=== PATIENT | male | born 1940 | race Caucasian/White ===

== ENCOUNTER 2017-03-05 15:30 | Inpatient (IN) | payer OTHER ==
[~2017-03-05] VITALS: Ht 180.3 cm; Wt 87.9 kg
[2017-03-05 16:39] VITALS: BP 138/60
[2017-03-05 16:39] LABS: BASOPHILS % (AUTO) 0.9 % (0.0-5.0); EOSINOPHILS % (AUTO) 0.6 % (0.0-8.0); HEMATOCRIT 30.2 % (42-54); LYMPHOCYTES % (AUTO) 46.7 % (21.0-51.0); MEAN CORPUSCULAR HGB CONC 35.2 g/dL (32.0-36.0); MEAN CORPUSCULAR VOLUME 90.9 fL (79-99); MONOCYTES % (AUTO) 13.2 % (3.0-13.0); NEUTROPHILS % (AUTO) 38.6 % (40.0-77.0); NUCLEATED RED BLOOD CELLS 0.1 % (0.0-0.19); PLATELET COUNT (AUTO) 143 K/uL (130-400); RED BLOOD CELL COUNT(AUTO) 3.32 MIL/uL (4.50-6.20); WHITE BLOOD COUNT (AUTO) 4.8 K/uL (4.8-10.8)
[2017-03-05 16:44] LABS: CREATININE 0.8 mg/dL (0.5-1.5); POTASSIUM 4.8 mmol/L (3.5-5.1)
[2017-03-05] MEDS ORDERED: VALS160T28 PO (17:15)
[2017-03-05] MEDS ORDERED: MORP30TA71 PO (17:15)
[2017-03-05] MEDS ORDERED: AMLO10TA2 PO (17:15)
[2017-03-06] VITALS (20 sets, daily range): BP systolic 108–136; BP diastolic 50–74
[2017-03-06] MEDS ORDERED: LIDOCAINE HCL-MPF 1% 5ML AMP IJ ONE (09:20)
[2017-03-06] MEDS ORDERED: ROPIVACAINE 0.5% 5MG/ML 30ML IJ ONE (09:20)
[2017-03-06] MEDS ORDERED: ROCURONIUM BROMIDE 10MG/1ML 5ML VL ONE ×2 (09:20→11:33)
[2017-03-06] MEDS ORDERED: GLYCOPYRROLATE 0.2 MG/ML 5 ML VIAL ONE (09:20)
[2017-03-06] MEDS ORDERED: LIDOCAINE HCL 2% JELLY 5 ML ONE (09:20)
[2017-03-06] MEDS ORDERED: LIDOCAINE PF 2% 5ML ABBOJECT ONE (09:20)
[2017-03-06] MEDS ORDERED: MIDAZOLAM HCL 1 MG/ML 2ML VIAL ONE (09:21)
[2017-03-06] MEDS ORDERED: PROPOFOL 10 MG/ML 20ML VIAL IV ONE (09:21)
[2017-03-06] MEDS ORDERED: FENTANYL CITRATE PF 50 MCG/1 ML 5ML AMP IV ONE (09:22)
[2017-03-06] MEDS ORDERED: CEFAZOLIN SODIUM 1 GM VIAL ONE ×3 (09:30→10:36)
[2017-03-06] MEDS ORDERED: LACTATED RINGERS 1000ML 1,000 ML IV ONE (09:31)
[2017-03-06] MEDS ORDERED: MEPERIDINE-PF 25 MG/ML SYG ONE ×3 (10:24→14:58)
[2017-03-06] MEDS ORDERED: SODIUM CHLORIDE 0.9% 10 ML VIAL ONE (10:34)
[2017-03-06] MEDS ORDERED: TEMAZEPAM 15 MG CAPSULE PO PRN (14:00)
[2017-03-06] MEDS ORDERED: POTASSIUM CHLORIDE 10% ELIXIR 20 MEQ/15 ML UDCUP PO PRN (14:00)
[2017-03-06] MEDS ORDERED: DiphenhydrAMINE HCL 50 MG/ML VIAL IVP PRN (14:00)
[2017-03-06] MEDS ORDERED: POTASSIUM CHLORIDE 20MEQ/100ML 100 ML IV PRN (14:00)
[2017-03-06] MEDS ORDERED: DIPHENHYDRAMINE HCL 25 MG CAPSULE PO PRN (14:00)
[2017-03-06] MEDS ORDERED: LIDOCAINE HCL-MPF 1% 2ML VIAL IVP PRN (14:00)
[2017-03-06] MEDS ORDERED: FERROUS FUMARATE 324 MG TABLET PO PRN (14:00)
[2017-03-06] MEDS ORDERED: PROMETHAZINE HCL 25 MG/ML 1ML AMPULE IM PRN (14:00)
[2017-03-06] MEDS: SODIUM CHLORIDE 0.9% 1000ML 1,000 ML IV SCH ×2 (17:03→21:45)
[2017-03-06] MEDS: CEFAZOLIN SODIUM 1 GM VIAL IVP SCH (18:09)
[2017-03-06] MEDS ORDERED: CEFAZOLIN 2GM / 50 ML 50 ML IV SCH (19:00)
[2017-03-06] MEDS: FAMOTIDINE 20MG TAB 20 MG TAB PO SCH (21:40)
[2017-03-06] MEDS: MORPHINE SULFATE 15 MG TABLET.SA PO SCH (21:41)
[2017-03-07] VITALS (7 sets, daily range): BP systolic 110–156; BP diastolic 55–88
[2017-03-07] MEDS: CEFAZOLIN SODIUM 1 GM VIAL IVP SCH (03:39)
[2017-03-07 05:02] LABS: HEMATOCRIT 24.9 % (42-54); MEAN CORPUSCULAR HEMOGLOBIN 33.4 pg (27.0-33.0); MEAN CORPUSCULAR HGB CONC 36.9 g/dL (32.0-36.0); MEAN CORPUSCULAR VOLUME 90.6 fL (79-99); PLATELET COUNT (AUTO) 128 K/uL (130-400); RED BLOOD CELL COUNT(AUTO) 2.75 MIL/uL (4.50-6.20); RED CELL DISTRIBUTION WIDTH 14.2 % (11.0-15.5); WHITE BLOOD COUNT (AUTO) 4.3 K/uL (4.8-10.8)
[2017-03-07 05:23] LABS: CREATININE 0.7 mg/dL (0.5-1.5); POTASSIUM 3.9 mmol/L (3.5-5.1)
[2017-03-07] MEDS: SODIUM CHLORIDE 0.9% 1000ML 1,000 ML IV SCH (08:58)
[2017-03-07] MEDS: TAMSULOSIN HCL 0.4 MG CAP.ER.24H PO SCH (08:58)
[2017-03-07] MEDS: LOSARTAN 100 MG TABLET PO SCH (08:58)
[2017-03-07] MEDS: POLYETHYLENE GLYCOL 3350 17 GM POWD.PACK PO SCH (08:58)
[2017-03-07] MEDS: FAMOTIDINE 20MG TAB 20 MG TAB PO SCH ×2 (08:58→19:51)
[2017-03-07] MEDS: AMLODIPINE BESYLATE 5 MG TAB PO SCH (08:59)
[2017-03-07] MEDS: ENOXAPARIN SODIUM 40 MG/0.4 ML SYRINGE SQ SCH (08:59)
[2017-03-07] MEDS: CALCIUM CARBONATE 500 MG TABLET PO PRN ×2 (08:59→19:51)
[2017-03-07] MEDS: MORPHINE SULFATE 15 MG TABLET.SA PO SCH (09:01)
[2017-03-07] MEDS: PSYLLIUM SEED 1 EACH PACKET PO SCH (11:59)
[2017-03-07] MEDS ORDERED: MORPHINE SULFATE 2 MG/ML 1ML SYG IVP ONE (12:00)
[2017-03-07] MEDS ORDERED: HYDROMORPHONE PCA 10 MG/50 ML 50 ML IV PRN (12:15)
[2017-03-07] MEDS ORDERED: NALOXONE HCL 0.4 MG/1 ML ML IVP PRN (12:15)
[2017-03-08 04:29] VITALS: BP 138/74
[2017-03-08 05:28] LABS: HEMATOCRIT 25.3 % (42-54); MEAN CORPUSCULAR HEMOGLOBIN 31.8 pg (27.0-33.0); MEAN CORPUSCULAR HGB CONC 35.2 g/dL (32.0-36.0); MEAN CORPUSCULAR VOLUME 90.4 fL (79-99); PLATELET COUNT (AUTO) 133 K/uL (130-400); RED CELL DISTRIBUTION WIDTH 14.3 % (11.0-15.5); WHITE BLOOD COUNT (AUTO) 5.3 K/uL (4.8-10.8)
[2017-03-08 05:32] LABS: CREATININE 0.6 mg/dL (0.5-1.5); POTASSIUM 3.4 mmol/L (3.5-5.1)
[2017-03-08] MEDS: POTASSIUM CHLORIDE 20 MEQ ERTAB PO PRN ×2 (06:13→11:45)
[2017-03-08] MEDS: CALCIUM CARBONATE 500 MG TABLET PO PRN (06:13)
[2017-03-08 07:00] VITALS: BP 135/66
[2017-03-08] MEDS: TAMSULOSIN HCL 0.4 MG CAP.ER.24H PO SCH (09:00)
[2017-03-08] MEDS: POLYETHYLENE GLYCOL 3350 17 GM POWD.PACK PO SCH (10:21)
[2017-03-08] MEDS: AMLODIPINE BESYLATE 5 MG TAB PO SCH (10:21)
[2017-03-08] MEDS: LOSARTAN 100 MG TABLET PO SCH (10:21)
[2017-03-08] MEDS: FAMOTIDINE 20MG TAB 20 MG TAB PO SCH (10:22)
[2017-03-08] MEDS: ENOXAPARIN SODIUM 40 MG/0.4 ML SYRINGE SQ SCH (10:22)
[2017-03-08 11:00] VITALS: BP 123/55
[2017-03-08] MEDS: PSYLLIUM SEED 1 EACH PACKET PO SCH (11:44)
[2017-03-08] MEDS ORDERED: BISACODYL 5 MG TABLET.DR PO PRN (14:00)
[2017-03-08 16:00] VITALS: BP 144/64
[2017-03-09] MEDS ORDERED: BISACODYL 10 MG SUPP.RECT RC PRN (14:00)
== END 2017-03-08 19:45 | disposition home or self-care (01) | DRG 493 ==
LOC: EDSTATUS 15:30 → DAHIP 03-06 09:13 → OBSVTOIN 03-06 09:13 → 4AH 03-06 14:39
PROVIDERS: ADMIT Orthopaedic Surgery; ATTEND Orthopaedic Surgery
PROC: 0PSF06Z Reposition Right Humeral Shaft with Intramedullary Internal Fixation Device, Open Approach (ICD-10-PCS; principal; 2017-03-06 09:50)
DX: M84.421A Pathological fracture, right humerus, initial encounter for fracture (principal); C79.51 Secondary malignant neoplasm of bone; C80.1 Malignant (primary) neoplasm, unspecified; I10 Essential (primary) hypertension
CPT/HCPCS: 36415; 76000; 80048; 85025; 85027; 86850; 86900; 86901; 86922; 88307; 88311; 93005; A4218; J0690; J1170; J1650; J2001; J2175; J2250; J2704; J2795; J3010; J3490; J7030; J7120